=== PATIENT | male | born 1945 | race Caucasian/White ===

== ENCOUNTER → 2021-06-19 | Outpatient (CLI) | payer OTHER ==
[~2021-06-19] MED LIST: ALPRAZOLAM0.5 MG PO; AUGMENTIN 875-1 EACH PO; BENADRYL 25MG C25 MG PO; BENTYL 10MG CAP10 MG PO; BLACK CHERRY PO; CORDARONE 200M200 MG PO; ELIQUIS2.5 MG PO; GABAPENTIN400 MG PO; KENALOG 0.5% CR15 GM TOP; LIORESAL TAB 1010 MG PO; LORTAB 5-325 M1 EACH PO; NORCO 10-325 T1 EACH PO; NORVASC 5 MG TAB5 MG PO; OMEPRAZOLE20 M2 PO; PRAVACHOL40 MG PO; PRINIVIL5 MG PO; PROVENTIL HFA6.7 GM INH; SPIRIVA INH; SYMBICORT 160-1 INHA INH; TRAZODONE HCL150 MG PO; TUMERIC PO; TYLENOL 500 MG500 MG PO; ULTRAM50 MG PO; VOLTAREN100 GM TP; ZYLOPRIM 100 M100 MG PO; ZYRTEC10 MG PO
== END ==
LOC: KOH-I 13:00
DX: R91.8 Other nonspecific abnormal finding of lung field (principal)
CPT/HCPCS: 71250

== ENCOUNTER → 2021-07-02 | Outpatient (CLI) | payer OTHER | LOC: HEART 5 11:43 | DX: R06.02 Shortness of breath (principal); Z79.899 Other long term (current) drug therapy | CPT/HCPCS: 94060; 94729 ==